=== PATIENT | male | born 1995 | race Caucasian/White ===

== ENCOUNTER 2017-10-10 01:52 | Emergency (ER) | payer BC, OTHER ==
[~2017-10-10] VITALS: Ht 175.3 cm; Wt 65.8 kg
[2017-10-10] MEDS ORDERED: PERCOCET PO (03:14)
[2017-10-10] MEDS ORDERED: CLEOCIN HCL150 MG PO (03:14)
[2017-10-10 03:26] VITALS: BP 111/56
== END 2017-10-10 03:27 | disposition home or self-care (01) ==
LOC: M.ERS 01:52
DX: K04.7 Periapical abscess without sinus (principal); Z90.89 Acquired absence of other organs; Z88.1 Allergy status to other antibiotic agents

== ENCOUNTER 2019-03-07 20:44 | Emergency (ER) | payer BC, OTHER ==
[~2019-03-07] VITALS: Ht 175.3 cm; Wt 68.0 kg
[~2019-03-07 20:44] MED LIST: CLEOCIN HCL150 MG PO; PERCOCET PO
[2019-03-07] MEDS ORDERED: ACETAMINOPHEN-1 EAC1 PO (21:47)
[2019-03-07 22:29] VITALS: BP 95/52
== END 2019-03-07 22:29 | disposition home or self-care (01) ==
LOC: M.ERS 20:44
DX: S63.592A Other specified sprain of left wrist, initial encounter (principal); Z88.1 Allergy status to other antibiotic agents; Z88.8 Allergy status to other drugs, medicaments and biological substances; V86.59XA Driver of other special all-terrain or other off-road motor vehicle injured in nontraffic accident, initial encounter; Y93.89 Activity, other specified; Y92.89 Other specified places as the place of occurrence of the external cause; Y99.8 Other external cause status

== ENCOUNTER 2019-05-29 21:46 | Emergency (ER) | payer BC, OTHER ==
[~2019-05-29] VITALS: Ht 175.3 cm; Wt 61.2 kg
[~2019-05-29 21:46] MED LIST changes: +ACETAMINOPHEN-1 EAC1 PO
[2019-05-29] MEDS ORDERED: AMOXICILLIN 50500 MG PO (22:16)
[2019-05-29] MEDS ORDERED: TYLENOL WITH CO1 TA1 PO (22:16)
[2019-05-29 22:49] VITALS: BP 139/89
== END 2019-05-29 22:50 | disposition home or self-care (01) ==
LOC: M.ERS 21:46
DX: K04.7 Periapical abscess without sinus (principal); K03.81 Cracked tooth; K02.9 Dental caries, unspecified; Z88.1 Allergy status to other antibiotic agents; Z88.8 Allergy status to other drugs, medicaments and biological substances

== ENCOUNTER 2020-02-15 21:20 | Emergency (ER) | payer BC ==
[~2020-02-15] VITALS: Ht 177.8 cm; Wt 64.0 kg
[~2020-02-15 21:20] MED LIST changes: +AMOXICILLIN 50500 MG PO; +TYLENOL WITH CO1 TA1 PO
[2020-02-15] MEDS ORDERED: TRIAMCINOLONE A80 G2 TOP (22:19)
[2020-02-15] MEDS ORDERED: PREDNISONE50 MG PO (22:19)
[2020-02-15 22:32] VITALS: BP 125/75
== END 2020-02-15 22:35 | disposition home or self-care (01) ==
LOC: M.ERS 21:20
DX: L25.9 Unspecified contact dermatitis, unspecified cause (principal); Z88.1 Allergy status to other antibiotic agents; Z88.8 Allergy status to other drugs, medicaments and biological substances